=== PATIENT | female | born 1960 | race Caucasian/White ===

== ENCOUNTER → 2023-01-04 | Outpatient (CLI) | payer OTHER ==
--- NOTE | 2023-01-13 08:09 | MM ---
Reason for Exam: Screening (asymptomatic). Last mammogram was performed 3 year(s) and 5 month(s) ago. Patient History: Menarche at age 13. First Full-Term at age 25. Postmenopausal. Sister had breast cancer, age 74. Risk Values: No 5 year model risk: 2.9%. NCI Lifetime model risk: 11.3%. Prior Study Comparison: 08/17/2007 Bilateral Screening Mammogram, [facility]. 10/13/2010 Bilateral Screening Mammogram, [facility]. 01/30/2014 Bilateral Screening Mammogram, [facility]. 05/18/2019 Bilateral Screening Mammogram, [facility]. 08/10/2019 Left Diagnostic Mammogram, [facility]. Tissue Density: There are scattered fibroglandular densities. Findings: Analyzed By CAD. There is no suspicious group of microcalcifications or new suspicious mass in either breast. Overall Assessment: Negative, BI-RAD 1 Management: Screening Mammogram of both breasts in [address] [facility] will attempt to contact patient to return for supplemental views and ultrasound if indicated. Patient should continue monthly self-breast exams. A clinical breast exam by your physician is recommended on an annual basis. This exam should not preclude additional follow-up of suspicious palpable abnormalities. Note on No scores and lifetime risk: 1. A No score greater than 3% is considered moderate risk. If this is the case, consider specialist referral to assess eligibility for a risk reducing agent. 2. If overall lifetime risk for the development of breast cancer is 20% or higher, the patient may qualify for future screening with alternating mammogram and breast MRI. Electronically signed and approved by: Rmaan Kendrick DO
== END | disposition home or self-care (01) ==
LOC: RADMAMWWP 08:30
PROVIDERS: ATTEND Family Medicine
DX: Z12.31 Encounter for screening mammogram for malignant neoplasm of breast (principal); Z78.0 Asymptomatic menopausal state; Z80.3 Family history of malignant neoplasm of breast
CPT/HCPCS: 77063; 77067

== ENCOUNTER → 2024-04-25 | Outpatient (CLI) | payer MEDICARE ==
--- NOTE | 2024-04-25 11:46 | CA ---
Exercise Stress Test Report Name: Jose Choudhary Exam Date: 04/25/2024 09:05 Exam Location: [place] Stress Ht (in): 67 Wt (lb): 170 BSA: 1.89 Ordering Phys: Raghavendra Ramon MD Referring Phys: Tina Mccartney PAC Technologist: Marcos Chopra Age: 63 Gender: F : 1960 Procedure CPT: Indications: hypertensive urgency ICD-10 Codes: Patient History: Medications: LOSARTAN Meds past 24 hrs: Pretest Chest Pain: STRESS TEST Omer Protocol Exercise Duration (min:sec): 09:[address] Depressions (mm): Angina Score: Carpio Score: Resting HR (bpm): 73 Peak HR (bpm): 169 Resting BP (mmHg): 152 / 75 Peak BP (mmHg): / 86 MPHR: 155 Target HR: 132 % MPHR: 109 METS: 10.3 Total Dose: Peak Dose: Atropine: Double Product: BP Response: Stress Termination: Reached target heart rate Stress Symptoms: No chest pain or symptoms Stress Summary: ECG ANALYSIS Resting ECG: Stress ECG: CONCLUSIONS Patient underwent exercise stress EKG with a Omer protocol treadmill stress test. Patient exercised into Stage 3 for a total of 9 minutes reaching a total of 10.3 METS. Patient's maximum heart rate was 169 which represented 109% age-predicted maximum heart rate. Stress EKG findings: At baseline patient's EKG showed normal sinus rhythm, normal axis, no significant ST or T wave abnormalities. At peak exercise, EKG showed abnormal response with 1.5-[address] depressions in the inferior lateral leads. Conclusions: 1. Abnormal stress EKG with inducible ST depressions. Consider stress testing with imaging or coronary angiography if clinically indicated. 2. Good exercise capacity. Dr. Yaya Sams DO (Electronically Signed) Final Date: 25 April 2024 11:45
== END | disposition home or self-care (01) ==
LOC: RADNMMAIN 08:36
PROVIDERS: ATTEND Family Medicine
CPT/HCPCS: 93017

== ENCOUNTER → 2024-09-05 | Outpatient (CLI) | payer MEDICARE ==
--- NOTE | 2024-09-05 14:26 | MM ---
Reason for Exam: Screening (asymptomatic). Last mammogram was performed 1 year(s) and 8 month(s) ago. Patient History: Menarche at age 13. First Full-Term at age 25. Postmenopausal. Sister had breast cancer, age 74. Risk Values: No 5 year model risk: 3.0%. NCI Lifetime model risk: 10.6%. Prior Study Comparison: 05/18/2019 Bilateral Screening Mammogram, [facility]. 08/10/2019 Left Diagnostic Mammogram, [facility]. 01/04/2023 Bilateral MG 3D screening mammo w/cad, [facility]. Tissue Density: There are scattered areas of fibroglandular density. Findings: Analyzed By CAD. Right breast: There is no suspicious group of microcalcifications or new suspicious mass. Left breast: There is no suspicious group of microcalcifications or new suspicious mass. Overall Assessment: Negative, BI-RAD 1 Management: Screening Mammogram of both breasts in [address] [facility] will attempt to contact patient to return for supplemental views and ultrasound if indicated. Patient should continue monthly self-breast exams. A clinical breast exam by your physician is recommended on an annual basis. This exam should not preclude additional follow-up of suspicious palpable abnormalities. Note on No scores and lifetime risk: 1. A No score greater than 3% is considered moderate risk. If this is the case, consider specialist referral to assess eligibility for a risk reducing agent. 2. If overall lifetime risk for the development of breast cancer is 20% or higher, the patient may qualify for future screening with alternating mammogram and breast MRI. [facility], , 09/05/2024 2:22 PM. Electronically signed and approved by: Raman Kendrick DO
--- NOTE | 2024-09-06 11:56 | CA ---
Transthoracic Echo Report Name: Jose Choudhary Age: 64 Gender: F : 1960 Exam Date: 09/05/2024 13:24 Exam Location: [place] [facility] Ht (in): 67 Wt (lb): 170 Ordering Physician: Raghavendra Ramon MD Attending/Referring Phys: Tina Mccartney PAC Operations Plant Attendant Rose Olmedo RDCS Procedure CPT: Indications: R94.39 ABNORMAL RESULT OF OTHER CARDIOVASCULAR FUN Cardiac Hx: Technical Quality: Fair Contrast 1: Total Dose (mL): Contrast 2: Total Dose (mL): MEASUREMENTS (Male / Female) Normal Values 2D ECHO LV Diastolic Diameter PLAX 4.9 cm 4.2 - 5.9 / 3.9 - 5.3 cm LV Systolic Diameter PLAX 2.8 cm IVS Diastolic Thickness 1.0 cm 0.6 - 1.0 / 0.6 - 0.9 cm LVPW Diastolic Thickness 1.2 cm 0.6 - 1.0 / 0.6 - 0.9 cm LV Relative Wall Thickness 0.5 LVOT Diameter 2.2 cm LV Diastolic Volume MOD BP 104.7 cm??? 67 - 155 / 56 - 104 cm??? LV Systolic Volume MOD BP 39.6 cm??? 22 - 58 / 19 - 49 cm??? LV Ejection Fraction MOD BP 62.2 % >= 55 % LV Cardiac Index MOD BP 2469.3 cm???/min???m??? LV Diastolic Volume MOD 4C 113.1 cm??? LV Systolic Volume MOD 4C 40.7 cm??? LV Ejection Fraction MOD 4C 64.0 % LV Cardiac Index MOD 4C 2747.4 cm???/min???m??? LV Diastolic Length 4C 7.8 cm LV Systolic Length 4C 6.2 cm LV Diastolic Volume MOD 2C 95.8 cm??? LV Systolic Volume MOD 2C 38.6 cm??? LV Ejection Fraction MOD 2C 59.7 % LV Cardiac Index MOD 2C 2171.7 cm???/min???m??? LV Diastolic Length 2C 7.9 cm LV Systolic Length 2C 6.2 cm LA Volume 56.0 cm??? 18 - 58 / 22 - 52 cm??? LA Volume Index 29.1 cm???/m??? 16 - 28 cm???/m??? DOPPLER AV Peak Velocity 153.7 cm/s AV Peak Gradient 9.4 mmHg AV Mean Velocity 104.2 cm/s AV Mean Gradient 4.9 mmHg AV Velocity Time Integral 29.3 cm LVOT Peak Velocity 139.6 cm/s LVOT Peak Gradient 7.8 mmHg LVOT Velocity Time Integral 26.3 cm LVOT Stroke Volume 96.5 cm??? LVOT Stroke Volume Index 51.1 ml/m??? LVOT Cardiac Index 3661.6 cm???/min???m??? AV Area Cont Eq vti 3.3 cm??? AV Area Cont Eq pk 3.3 cm??? MV Area PHT 3.1 cm??? Mitral E Point Velocity 57.5 cm/s Mitral A Point Velocity 74.4 cm/s Mitral E to A Ratio 0.8 MV Deceleration Time 246.3 ms TR Peak Velocity 225.2 cm/s TR Peak Gradient 20.3 mmHg Right Atrial Pressure 5.0 mmHg Pulmonary Artery Systolic Pressu 25.3 mmHg Right Ventricular Systolic Press 25.3 mmHg PV Peak Velocity 97.6 cm/s PV Peak Gradient 3.8 mmHg FINDINGS Left Ventricle Left ventricular ejection fraction is estimated at 60-65 %. Mildly increased septal wall thickness. Mildly increased posterior wall thickness. Left ventricular cavity size normal. No obvious regional wall motion abnormalities. Right Ventricle Normal right ventricular size and function. Right ventricular systolic pressure within normal limits. Right Atrium Normal right atrial size. Left Atrium Mildly increased left atrial volume. Mitral Valve Structurally normal mitral valve. No mitral stenosis, regurgitation or prolapse. Aortic Valve Trileaflet aortic valve. No aortic valve stenosis or regurgitation. Tricuspid Valve Structurally normal tricuspid valve. No tricuspid stenosis. Mild tricuspid regurgitation. Pulmonic Valve Structurally normal pulmonic valve. No pulmonic stenosis. Trace pulmonic regurgitation. Pericardium No pericardial effusion. Aorta Aortic annulus normal. Mildly dilated proximal ascending aorta (tube). CONCLUSIONS Left ventricular ejection fraction is estimated at 60-65 %. Mild concentric LVH Mild LA dilatation Mild tricuspid regurgitation Previewed by: Dr Judah Bishop (Electronically Signed) Final Date: 06 September 2024 11:55
== END | disposition home or self-care (01) ==
LOC: RADECHMAIN 13:05
PROVIDERS: ATTEND Family Medicine
DX: Z12.31 Encounter for screening mammogram for malignant neoplasm of breast (principal); R94.39 Abnormal result of other cardiovascular function study; R92.323 Mammographic fibroglandular density, bilateral breasts; I07.1 Rheumatic tricuspid insufficiency; Z78.0 Asymptomatic menopausal state; Z80.3 Family history of malignant neoplasm of breast
CPT/HCPCS: 77063; 77067; 93306